=== PATIENT | male | born 1985 | race African-American/Black ===

== ENCOUNTER 2023-09-17 14:36 | Emergency (ER) | payer OTHER ==
[~2023-09-17] VITALS: Ht 182.9 cm; Wt 83.9 kg
[2023-09-17 14:38] VITALS: BP 145/104; PULSE 89; RESP 18; TEMP 97.5; O2SAT 99
[2023-09-17] MEDS ORDERED: ACET-8905 PO (17:02)
[2023-09-17] MEDS: KETOROLAC 60 MG/2 ML VIAL IM ONE (17:08)
== END 2023-09-17 17:12 | disposition home or self-care (01) ==
LOC: MED 14:36
DX: M54.50 Low back pain, unspecified (principal)
CPT/HCPCS: 96372; 99283; J1885